=== PATIENT | male | born 1945 | race Caucasian/White ===

== ENCOUNTER → 2018-03-19 | Day surgery (SDC) | payer MEDICARE, OTHER ==
[~2018-03-19] MED LIST: AMLODIPINE BESY10 MG PO; LIDOCAINE HCL 2% LOCAL INJ 5 ML SDV VIAL INJ ONE; PROPOFOL IV EMULSION 10 MG/ML 20 ML VIAL ONE
--- OUTSIDE RECORDS SUMMARY | 2018-03-19 09:48 | XMS REPORT | Encounter Summary ---
Author Organization Unknown Address [address] [place] [address] Phone [phone] Reason for Visit Medical Complaint Instructions 1. Impacted cerumen of bilateral ears Discussion Note: None recorded. Patient educational handouts: No information available. Plan of Care Reminders Provider Appointments None recorded. Lab None recorded. Referral None recorded. Procedures None recorded. Surgeries None recorded. Imaging None recorded. Medications Name Start Date benazepril 20 mg tablet furosemide 20 mg tablet TK 1 T PO D Medications Administered None recorded. Vitals Height Weight BMI Blood Pressure 6 ft 151 lbs 20.5 kg/m2 115/62 mm[Hg] Lab Results None recorded. Allergies Code Code System Name Reaction Severity Status Onset NKDA Problems None recorded. Procedures None recorded. Vaccine List None recorded. Social History Smoking Status Current Every Day Smoker Past Encounters 10/28/2017 Impacted Cerumen of Bilateral Ears [facility]: [address] [place] [address], Ph. History of Present Illness Ear Complaint Reported By: Patient HPI: Location: bilateral. Quality: ears feel full/plugged. Duration: constant, symptoms lasting over 2 weeks. Modifying factors: does not hurt to lie on, or pull on ear, does not hurt to chew. Associated Symptoms: no discharge from the ears, no nose/sinus problems, no popping noise in the ears, no ringing in the ears, no earache, no dizziness, no vertigo, no headache, hearing loss Review of Systems:ROS as noted in the HPI Review of Systems Basic Reported By: Patient Physical Exam Adult Basic Reported By: Patient Constitutional: General Appearance: healthy-appearing, well-nourished, well-developed. Level of Distress: NAD. Ambulation: ambulating normally Psychiatric: Mental Status: active and alert Zik-Ashx-Csfle-Throat: Ears: no lesions on external ear, no outer ear tenderness, EAC occluded with cerumen, cerumen removed to visualize TM
--- OUTSIDE RECORDS SUMMARY | 2018-03-19 09:48 | XMS REPORT | Continuity of Care Document ---
Author Author [facility] Interface Address Unknown Phone Unavailable Problems Problem Status Onset Date Classification Date Reported Comments Source SECONDARY MALIGNANT NEOPLASM OF BONE/RIB Active 03/16/2018 [facility] C78.7/C20 Active 02/24/2018 [facility] RIBS Active 01/26/2018 [facility] DX: [id number] NEOPLASM OF RECTUM, Z5 Active 01/20/2018 [facility] Impacted cerumen of bilateral ears 10/28/2017 Diagnosis 10/28/2017 [facility] LABS Active 10/14/2017 [facility] C78.7 C20 Active 10/06/2017 [facility] Malignant neoplasm of rectum 07/05/2017 10/07/2017 [facility] C20 Active 06/25/2017 [facility] UNK Active 04/17/2017 [facility] DX: D21.4=BENIGN NEOPLASM OF CONNECTI Active 04/15/2017 [facility] R68.81 R63.4 F17.200 R97.8 R74.0 Active 04/09/2017 [facility] Hard of hearing Active Problem 10/19/2017 [facility] Hypertension Active Problem 10/19/2017 [facility] Rectal cancer Active Problem 10/19/2017 [facility] Secondary malignant neoplasm of liver and intrahepatic bile duct 10/07/2017 [facility] Emphysema, unspecified 10/07/2017 [facility] Colostomy status 10/07/2017 [facility] Constipation, unspecified 07/30/2017 [facility] Personal history of nicotine dependence 07/30/2017 [facility] Essential hypertension 07/30/2017 [facility] BENIGN NEOPLASM OF CONNECTIVE AND OTH SO Active [facility] Datatype(DG1.4)- Active [facility] OTHER ABNORMAL TUMOR MARKERS Active [facility] ABNORMAL WEIGHT LOSS Active [facility] MALIGNANT NEOPLASM OF COLON, UNSPECIFIED Active [facility] MALIGNANT NEOPLASM OF RECTUM Active [facility] SECONDARY MALIG NEOPLASM OF LIVER AND IN Active [facility] SECONDARY MALIGNANT NEOPLASM OF BONE Active [facility] ENCOUNTER FOR ANTINEOPLASTIC CHEMOTHERAP Active [facility] Medications Medication Details Route Status Patient Instructions Ordering Provider Order Date Source Omnipaque 300 100 mL, 0 ml/hr, Route: IV, Drug Form: SOLN, ONCE, Start date: 10/16/17 13:50:00 CDT, Stop date: 10/16/17 13:50:00 CDTNotes: (Same as:Omnipaque 300). WASTE: F/P - Black; E - Municipal Trash Bin Inactive 10/16/2017 [facility] Omnipaque 300 100 mL, Route: IV, Drug Form: SOLN, ONCE, Start date: 07/01/17 9:58:00 CDT, Stop date: 07/01/17 9:58:00 CDTNotes: (Same as:Omnipaque 300). WASTE: F/P - Black; E - Municipal Trash Bin Inactive 07/01/2017 [facility] acetaminophen 500 mg, 1 tab, Route: PO, Drug form: TAB, Q6H, Start date: 04/23/17 18:00:00 SPRAYER LEATHER, Duration: 30 day, Stop date: 05/23/17 12:00:00 CSTNotes: Max acetaminophen 4000 mg/day (4 gm/day). (Same as: Tylenol Extra Strength) Inactive 04/24/2017 [facility] diphenhydrAMINE 25 mg oral tablet 25 mg=1 tab, PO, Bedtime, PRN Insomnia, 0 Refill(s) Active 04/23/2017 [facility] acetaminophen 500 mg oral tablet 500 mg=1 tab, PO, Q6H, X 14 day, # 56 tab, 0 Refill(s) No Longer Active 04/23/2017 [facility] naproxen 500 mg oral tablet 500 mg=1 tab, PO, BID, X 14 day, # 28 tab, 0 Refill(s) No Longer Active 04/23/2017 [facility] baclofen 10 mg oral tablet 5 mg=0.5 tab, PO, BID, .., 0 Refill(s) Active 04/23/2017 [facility] Famotidine 20 MG Oral Tablet 20 mg=1 tab, PO, Q12H, 0 Refill(s) Active 04/23/2017 [facility] lisinopril 20 mg oral tablet 20 mg=1 tab, PO, Q24H, 0 Refill(s) Active 04/23/2017 [facility] benazepril 20 mg, Route: PO, Drug form: TAB, Daily, Dosing Weight 67.273, kg, Start date: 04/23/17 9:00:00 SPRAYER LEATHER, Duration: 30 day, Stop date: 05/22/17 9:00:00 [employer]ATHER No Longer Active 04/23/2017 [facility] Amlodipine 10 mg, 2 tab, Route: PO, Drug form: TAB, Daily, Dosing Weight 67.273, kg, Start date: 04/23/17 9:00:00 SPRAYER LEATHER, Duration: 30 day, Stop date: 05/22/17 9:00:00 CSTNotes: (Same as: Norvasc) Inactive 04/23/2017 [facility] Enoxaparin 40 mg, 0.4 mL, Route: SUB-Q, Drug form: INJ, [id number], Dosing Weight 67.273, kg, Start date: 04/23/17 2:30:00 SPRAYER LEATHER, Stop date: 05/22/17 2:30:00 CSTNotes: (Same as: Lovenox) Inactive 04/23/2017 [facility] Famotidine 20 mg, 1 tab, Route: PO, Drug form: TAB, Q12H, Dosing Weight 67.273, kg, Start date: 04/22/17 21:00:00 SPRAYER LEATHER, Duration: 30 day, Stop date: 05/22/17 9:00:00 CSTNotes: (Same as: Pepcid) No Longer Active 04/23/2017 [facility] Ofirmev 500 mg, 50 mL, Route: IV, Drug form: INJ, Q6H, Dosing Weight 67.273, kg, for > or=50 kg, Start date: 04/22/17 18:00:00 SPRAYER LEATHER, Duration: 24 hr, Stop date: 04/23/17 12:00:00 CSTNotes: Infuse over 15 minutes Do not exceed 4gm/day of acetaminophen MEDICATION WASTE Product Size: 1000 mg Product Wasted: ___ mg No Longer Active 04/23/2017 [facility] lisinopril 20 mg, 1 tab, Route: PO, Drug form: TAB, Q24H, Start date: 04/22/17 18:00:00 SPRAYER LEATHER, Duration: 30 day, Stop date: 05/21/17 18:00:00 CSTNotes: (Same as: Prinivil, Zestril) No Longer Active 04/23/2017 [facility] Dilaudid 1 mg, 0.5 tab, Route: PO, Drug form: TAB, Q3H, PRN Pain Score 7-10, Start date: 04/22/17 17:23:00 SPRAYER LEATHER, Duration: 30 day, Stop date: 05/22/17 17:22:00 CSTNotes: (Same as: Dilaudid) No Longer Active 04/22/2017 [facility] Naproxen 500 mg, 1 tab, Route: PO, Drug form: TAB, BID, Dosing Weight 67.273, kg, Start date: 04/22/17 17:00:00 SPRAYER LEATHER, Duration: 30 day, Stop date: 05/22/17 9:00:00 CSTNotes: (Same as: Naprosyn) Take with food. No Longer Active 04/22/2017 [facility] Baclofen 5 mg, 0.5 tab, Route: PO, Drug form: TAB, BID, Dosing Weight 67.273, kg, Start date: 04/22/17 17:00:00 SPRAYER LEATHER, Duration: 30 day, Stop date: 05/22/17 9:00:00 SPRAYER LEATHER, ..Notes: (Same As: Lioresal) No Longer Active 04/22/2017 [facility] neostigmine (ANES) Route: IV, Drug form: INJ, ONCE, Stop date: 04/22/17 14:43:00 SPRAYER LEATHER Inactive 04/22/2017 [facility] ondansetron (ANES) Route: IV, Drug form: INJ, ONCE, Stop date: 04/22/17 14:43:00 SPRAYER LEATHER Inactive 04/22/2017 [facility] glycopyrrolate (ANES) Route: IV, Drug form: INJ, ONCE, Stop date: 04/22/17 14:43:00 SPRAYER LEATHER Inactive 04/22/2017 [facility] dexamethasone (ANES) Route: IV, Drug form: INJ, ONCE, Stop date: 04/22/17 14:43:00 SPRAYER LEATHER Inactive 04/22/2017 [facility] Lidocaine 2 gm, 250 mL, Rate: Infuse as directed, Dosing Weight 67.273, kg, Route: IV, Total Volume: 250 mL, Start date: 04/22/17 14:33:00 SPRAYER LEATHER, Duration: 30 day, Stop date: 05/22/17 14:32:00 SPRAYER LEATHER, Replace Every: 24 hr Inactive 04/22/2017 [facility] Dilaudid 0.3 mg, Route: IVP, Q3H, Dosing Weight 67.273, kg, PRN Pain Score 7-10, Start date: 04/22/17 14:33:00 SPRAYER LEATHER, Duration: 30 day, Stop date: 05/22/17 14:32:00 SPRAYER LEATHER Inactive 04/22/2017 [facility] Ondansetron 4 mg, 2 mL, Route: IVP, Drug form: INJ, Q6H, Dosing Weight 67.273, kg, PRN Nausea & Vomiting, Start date: 04/22/17 14:33:00 SPRAYER LEATHER, Duration: 30 day, Stop date: 05/22/17 14:32:00 CSTNotes: (Same as: Nena) MEDICATION WASTE Product Size: 4 mg Product Wasted: ___ mg No Longer Active 04/22/2017 [facility] Diphenhydramine 25 mg, 1 tab, Route: PO, Drug form: TAB, Bedtime, Dosing Weight 67.273, kg, PRN Insomnia, Start date: 04/22/17 14:33:00 SPRAYER LEATHER, Duration: 30 day, Stop date: 05/22/17 14:32:00 SPRAYER LEATHER No Longer Active 04/22/2017 [facility] Calcium Chloride 0.0014 MEQ/ML / Potassium Chloride 0.004 MEQ/ML / Sodium Chloride 0.103 MEQ/ML / Sodium Lactate 0.028 MEQ/ML Injectable Solution 1,000 mL, Rate: 50 ml/hr, Infuse over: 20 hr, Route: IV, Dosing Weight 67.273 kg, Total Volume: 1,000, Start date: 04/22/17 14:33:00 SPRAYER LEATHER, Duration: 30 day, Stop date: 05/22/17 14:32:00 SPRAYER LEATHER, 1.85, m2 No Longer Active 04/22/2017 [facility] acetaminophen (ANES) 10 mg Route: IV, Drug form: INJ, Start date: 04/22/17 14:16:00 SPRAYER LEATHER, Stop date: 04/22/17 15:16:00 SPRAYER LEATHER Inactive 04/22/2017 [facility] fentaNYL (ANES) Route: IV, Drug form: INJ, ONCE, Stop date: 04/22/17 13:34:00 SPRAYER LEATHER Inactive 04/22/2017 [facility] lidocaine (ANES) Route: IV, Drug form: INJ, ONCE, Stop date: 04/22/17 13:34:00 SPRAYER LEATHER Inactive 04/22/2017 [facility] rocuronium (ANES) Route: IV, Drug form: INJ, ONCE, Stop date: 04/22/17 13:34:00 SPRAYER LEATHER Inactive 04/22/2017 [facility] propofol (ANES) Route: IV, Drug form: INJ, ONCE, Stop date: 04/22/17 13:34:00 SPRAYER LEATHER Inactive 04/22/2017 [facility] dexmedetomidine (ANES) 200 microgram Route: IV, Drug form: INJ, Start date: 04/22/17 13:30:00 SPRAYER LEATHER, Stop date: 04/22/17 14:30:00 SPRAYER LEATHER Inactive 04/22/2017 [facility] ketAMINE (ANES) 100 mg Route: IV, Drug form: INJ, Start date: 04/22/17 13:30:00 SPRAYER LEATHER, Stop date: 04/22/17 14:30:00 SPRAYER LEATHER Inactive 04/22/2017 [facility] metroNIDAZOLE (ANES) 5 mg Route: IV, Drug form: INJ, Start date: 04/22/17 13:00:00 SPRAYER LEATHER, Stop date: 04/22/17 14:00:00 SPRAYER LEATHER Inactive 04/22/2017 [facility] Sodium Chloride 0.9% IV (ANES) 1000 mL Route: IV, Total Volume: 1,000, Start date: 04/22/17 12:45:00 SPRAYER LEATHER, Stop date: 04/22/17 13:45:00 SPRAYER LEATHER Inactive 04/22/2017 [facility] ceFAZolin (ANES) 1000 mg Route: IV, Drug form: INJ, Start date: 04/22/17 12:45:00 SPRAYER LEATHER, Stop date: 04/22/17 13:45:00 SPRAYER LEATHER Inactive 04/22/2017 [facility] Lactated Ringers Injection IV (ANES) 1000 mL Route: IV, Total Volume: 1,000, Start date: 04/22/17 12:33:00 SPRAYER LEATHER, Stop date: 04/22/17 13:33:00 SPRAYER LEATHER Inactive 04/22/2017 [facility] Exparel 20 mL, Route: InFILtration(local), Drug Form: INJ, Dosing Weight 67.273, kg, ONCALL, For Hemorrhoidectomy, Start date: 04/22/17 11:00:00 SPRAYER LEATHER, Duration: 30 day, Stop date: 05/22/17 10:59:00 CSTNotes: (Same as: Exparel) NOT FOR IV use Postoperative analgesia: Infiltration (local): Dose is based on surgical site and volume required to cover the area (in general, the maximum total dose is 266 mg). No Longer Active 04/22/2017 [facility] Entereg 12 mg, Route: PO, PRE OP, Dosing Weight 67.273, kg, Start date: 04/22/17 11:00:00 SPRAYER LEATHER, Duration: 7 day, Stop date: 04/29/17 10:59:00 SPRAYER LEATHER Inactive 04/22/2017 [facility] Lactated Ringers IV 1000 mL 1,000 mL, Rate: 40 ml/hr, Infuse over: 25 hr, Route: IV, Dosing Weight 67.273 kg, Total Volume: 1,000, Start date: 04/22/17 10:40:00 SPRAYER LEATHER, Duration: 1 doses or times, Stop date: 04/23/17 11:39:00 SPRAYER LEATHER, 1.85, m2 Inactive 04/22/2017 [facility] Dexmedetomidine 200 microgram, 2 mL, Rate: Titrate, Start Dose: 0.2 microgram/kg/hr, Titration: 0.1 microgram/kg/hr every 30 min, Goal(s): MAINTAIN WITHIN NORMAL LIMITS, Max Dose: 1.5 microgram/kg/hr, Route: IV, Dosing Weight 67.273 kg, Total Volume: 50, Start date:...Notes: Not for use > 24 hours No Longer Active 04/22/2017 [facility] benazepril 20 mg oral tablet 20 mg=1 tab, PO, Daily, 0 Refill(s) Active 04/21/2017 [facility] amLODIPine 10 mg oral tablet 10 mg=1 tab, PO, Daily, 0 Refill(s) Active 04/21/2017 [facility] Visipaque 75 mL, Route: IV, Drug Form: SOLN, ONCE, Start date: 04/09/17 13:37:00 SPRAYER LEATHER, Stop date: 04/09/17 13:37:00 CSTNotes: (Same as: Visipaque). WASTE: F/P - Black; E - Municipal Trash Bin Inactive 04/09/2017 [facility] Benazepril hydrochloride 20 MG Oral Tablet benazepril 20 mg tablet Active [facility] Furosemide 20 MG Oral Tablet furosemide 20 mg tablet TK 1 T PO D Active [facility] Allergies, Adverse Reactions, Alerts Substance Category Reaction Severity Reaction type Status Date Reported Comments Source Immunizations Immunization Date Given Site Status Last Updated Comments Source Results Order Name Results Value Reference Range Date Interpretation Comments Source Chest 2 views DX Chest 2 views DX PA and lateral chest: Right subclavian Port-A-Cath is seen with the tip in the upper SVC. The aorta is tortuous with calcification in the arch. The cardiomediastinal silhouette, pulmonary vasculature and minerva are otherwise within normal limits. There is a nipple shadow overlying the lower left lung. The lungs and pleural spaces are clear. There are no significant osseous abnormalities. There is no significant change compared to 05/01/2017, other than Port-A-Cath placement. IMPRESSION: No acute radiographic abnormalities in the chest. DLAWRENCE-PC 02/24/2018 - - Read by: Hood Martin MD Dictated Date/time: 02/24/18 15:49 Electronically Signed by: Hood Martin MD 02/24/18 15:51 FINAL REPORT [facility] PET CT Colorectal CA initial staging PET CT Colorectal CA initial staging Addendum: Comparison is made visualized 2017 CAT scan. Within the limitations of non-PET comparison technique, the overall bulk of liver metastasis appears slightly improved. The left lobe mass measures 7.8 cm versus 8.1 cm. The right lobe mass measures 7.2 cm versus 8.5 cm. The bony metastases are difficult to compare as they are better seen on PET technique. These findings are communicated to Brandi Zuñiga DO at 01/26/2018 8:49 AM CDT. Patient Name: JOJO REYNOSO : 1945; Age: 73 years Male MR: [id number] Study: PET CT Colorectal CA initial staging 01/24/2018 9:00 AM CDT Clinical Indication: C20 Malignant neoplasm of rectum; C78.7 Secondary malignant neoplasm of liver and intrahepatic bile duct--Initial Dose: FKJ=244.23 ; CTDIvol=3.13 COMPARISON: None PET CT TECHNIQUE: Positron emission tomography imaging is performed 45 minutes after intravenous administration of 15.4 mCi of F-18 labeled FDG, from the skull base to the mid thigh region. PET images were reviewed in the axial, coronal and sagittal orthogonal projections. Non-contrast enhanced CT imaging was for performed for attenuation correction, localization and limited diagnostic purposes. INJECTION SITE: Right antecubital Serum glucose: 85 mg/dL. FINDINGS: NECK: There are no foci of abnormal metabolic activity. CHEST: There are no foci of abnormal metabolic activity. Moderate centrilobular emphysematous change. The aorta measures 4.2 cm in diameter. There are coronary artery calcifications. ABDOMEN: Multiple liver metastases with central necrosis and peripheral uptake. In the right lobe, image 140, the mass measures 8.5 cm, SUV 7.0. In the left lobe, image 136, the mass measures 8.7 cm, SUV 7.8. Multiple other foci of abnormal uptake are identified throughout the liver. For example, on image 160, in the inferior right lobe, the mass measures 2.5 cm, SUV 8.0. PELVIS: Distal colonic uptake spans images 207-218, SUV 8.8. Left lower quadrant ostomy. BONES: C7 metastatic disease, image 50, 1.8 cm, SUV 6.4. Right T1 transverse process metastasis, image 57 measures 1 cm, SUV 4.1. Right fifth posterior rib metastasis image 70 measures 2.5 cm, SUV 3.3. Left eighth rib metastasis, image 141 measures 1 cm, SUV 3.9. T11 metastasis, image 123 measures 2 cm, SUV 6.4. L5 metastasis, image 185 measures 2.7 cm, SUV 5.2. Left iliac bone metastasis, image 207 measures 1.8 cm, SUV 6.2. Sacral metastasis, image 206 measures 1.8 cm, SUV 5.2. Physiologic F-18 labeled FDG distribution is noted in the brain, heart, spleen and genitourinary tracts. IMPRESSION: 1. Multiple bony metastasis. 2. Multiple liver metastasis. 3. Distal colonic nonspecific uptake, correlation with the most recent colonoscopy is recommended. 4. Slightly dilated aorta. FDG PET is known to show little to no uptake in malignant disease with low metabolic activity including bronchoalveolar carcinoma (renamed adenocarcinoma in situ, minimally invasive adenocarcinoma) or carcinoid. There are studies showing malignant pleural mesothelioma with SUV values ranging from less than 1 to greater than 12 depending on metabolic activity of the tumor. SL: [id number] 01/24/2018 - - Read by: Reid Perez MD Dictated Date/time: 01/26/18 08:41 Electronically Signed by: Reid Perez MD 01/26/18 08:49 FINAL REPORT - - Read by: Reid Perez MD Dictated Date/time: 01/26/18 07:41 Electronically Signed by: Reid Perez MD 01/26/18 08:03 FINAL REPORT [facility] CHEM PANEL eGFR 84 mL/min/1.73m2 10/16/2017 Result Comment: The eGFR is calculated using the CKD-EPI formula. In most young, healthy individuals the eGFR will be >90 mL/min/1.73m2. The eGFR declines with age. An eGFR of 60-89 may be normal in some populations, particularly the elderly, for whom the CKD-EPI formula has not been extensively validated. Use of the eGFR is not recommended in the following populations: Individuals with unstable creatinine concentrations, including patients and those with serious co-morbid conditions. Patients with extremes in muscle mass or diet. The data above are obtained from the National Kidney Disease Education Program (NKDEP) which additionally recommends that when the eGFR is used in patients with extremes of body mass index for purposes of drug dosing, the eGFR should be multiplied by the estimated BMI. [facility] CHEM PANEL POC Creatinine 0.9 mg/dL 0.5 - 1.4 10/16/2017 [facility] Chest/Abdomen/Pelvis w IV contrast CT Chest/Abdomen/Pelvis w IV contrast CT EXAM: CT chest, abdomen, pelvis HISTORY: Malignant neoplasm of rectum, secondary malignant neoplasm of the liver COMPARISON: CT 07/01/2017 TECHNIQUE: Axial images with sagittal and coronal reformats. 100 mL Omnipaque IV contrast and 50 mL Omnipaque oral contrast. DLP 592 FINDINGS: CHEST LUNGS: 3 mm nodular density left upper lobe, series 4, image 60 is stable. Near- complete resolution of previous irregular opacity right lung apex, images 52-53. No new nodule is seen. Emphysema. MEDIASTINUM: Few small lymph nodes are stable and nonspecific. PLEURA: No effusion. ABDOMEN AND PELVIS LIVER: Decreased size and resolution of some of the multiple liver masses. For example, the dominant mass in the lateral left hepatic lobe measures approximately 9.8 x 8.1 cm, previously 12.5 x 9.5 cm. No new mass is seen. OTHER SOLID ORGANS: Calcified granulomas in the spleen. Small cysts in both kidneys. The gallbladder and adrenals are unremarkable. Mild mass effect on the proximal body of the pancreas from the adjacent liver mass. Mild enlargement of the prostate. The bladder is unremarkable. GASTROINTESTINAL TRACT: Mass at the rectosigmoid measures approximately 3.2 x 3 cm, previously 3.8 x 3 cm. Stable left-sided colostomy. No bowel obstruction. Diverticulosis sigmoid colon. PERITONEUM AND RETROPERITONEUM: Decreased trace ascites around the liver. No bulky lymph nodes. Arteriosclerosis. BONES: Generalized osteopenia. IMPRESSION: 1. Treatment response with decreased size or resolution of the multiple masses in the liver. 2. No significant change or slightly decreased size of the primary neoplasm rectosigmoid colon. 3. Decreased trace free fluid around the liver. 4. No new disease is seen 5. Pulmonary emphysema. SL 14 10/16/2017 - - Read by: Dallin Garrison MD Dictated Date/time: 10/16/17 11:26 Electronically Signed by: Dallin Garrison MD 10/16/17 12:05 FINAL REPORT [facility] CHEM [facility] eGFR 84 mL/min/1.73m2 07/01/2017 Result Comment: The eGFR is calculated using the CKD-EPI formula. In most young, healthy individuals the eGFR will be >90 mL/min/1.73m2. The eGFR declines with age. An eGFR of 60-89 may be normal in some populations, particularly the elderly, for whom the CKD-EPI formula has not been extensively validated. Use of the eGFR is not recommended in the following populations: Individuals with unstable creatinine concentrations, including patients and those with serious co-morbid conditions. Patients with extremes in muscle mass or diet. The data above are obtained from the National Kidney Disease Education Program (NKDEP) which additionally recommends that when the eGFR is used in patients with extremes of body mass index for purposes of drug dosing, the eGFR should be multiplied by the estimated BMI. [facility] CHEM PANEL POC Creatinine 0.9 mg/dL 0.5 - 1.4 07/01/2017 [facility] Chest/Abdomen/Pelvis w IV contrast CT Chest/Abdomen/Pelvis w IV contrast CT Patient Name: JOJO REYNOSO : 1945; Age: 72 years y/o Male MR: [id number] Study: Chest/Abdomen/Pelvis w IV contrast CT 07/01/2017 9:14 AM CDT Clinical Indication: - C20 Malignant neoplasm of rectum, Z51.11 Encounter for antineoplastic chemotherapy; Comparison: Pelvic MRI April 16, 2017, abdomen and pelvis CT April 02, 2017. TECHNIQUE: Volumetric acquisition of the chest, abdomen and pelvis following intravenous administration of contrast. Delayed imaging was then performed through the abdomen and pelvis. Coronal and sagittal reformats created. 100 mL Omnipaque 300 IV. Total exam DLP 596. FINDINGS: Chest: Bullous and emphysematous changes within the lungs. Few small reticular subpleural fibrotic changes in the lung apices and upper lobe regions. There is a 3 mm indeterminate nodule left upper lobe, image 4 series 6. No other suspicious pulmonary nodule, mass or infiltrate. No pleural effusion. Heart size normal. No pericardial effusion. Mild atherosclerotic calcification of the thoracic aorta without aneurysm or dissection. Pulmonary emboli appreciated. No thoracic lymphadenopathy. There is a MediPort in the right chest wall with the catheter tip in the SVC. No thoracic osseous abnormalities. Abdomen: Again noted are numerous large metastatic lesions scattered throughout the liver. Largest lesion in the left lobe measures at least 10 cm. Largest lesion in the right lobe measures at least 9 cm. Many other smaller lesions are scattered throughout the parenchyma. There is no significant pathologic biliary ductal dilatation. . Gallbladder is grossly normal. Pancreas,, kidneys are unremarkable. Right adrenal gland appears grossly normal. Left adrenal gland is diffusely mildly enlarged, concerning for additional metastatic spread. There is trace free fluid surrounding the liver. Minimal free fluid is seen within the pelvic peritoneum. No other significant ascites Bowel: No small bowel abnormality appreciated. There is been interval left lower quadrant colostomy and mucous fistula formation. No colonic distention or obstruction. There is moderate diverticulosis of the proximal sigmoid colon, without evidence for diverticulitis or colitis. There is a 4 cm rectal mass suspected at the upper rectum near the rectosigmoid junction. There is no definite perirectal or pelvic sidewall lymph nodes or masses otherwise. Pelvis: The bladder is unremarkable. No additional abnormal fluid collection identified in the abdomen or pelvis. No bony lesion identified about the abdomen or pelvis. Of note there anasarca changes noted throughout the body wall. IMPRESSION: Bullous and emphysematous changes within the lungs. Tiny 3 mm indeterminate nodule left upper lobe. No other suspicious thoracic disease appreciated. Extensive metastatic disease throughout the liver with numerous, very large hepatic masses again scattered throughout the right and left hepatic lobes. Interval left lower quadrant colostomy and mucous fistula creation. 4 cm upper rectal mass is again identified. No definite abdominal or pelvic lymphadenopathy otherwise. Small perihepatic and pelvic free fluid. Anasarca changes. SL: [id number] 07/01/2017 - - Read by: Celestino Mccall MD Dictated Date/time: 07/01/17 11:29 Electronically Signed by: Celestino Mccall MD 07/01/17 11:46 FINAL REPORT [facility] ELECTROLYTES AGAP 16.3 meq/L 10.0 - 20.0 04/23/2017 [facility] ELECTROLYTES Glucose Lvl 119 mg/dL 70 - 99 04/23/2017 [facility] ELECTROLYTES BUN 28 mg/dL 7 - 22 04/23/2017 [facility] ELECTROLYTES Creatinine Lvl 1.23 mg/dL 0.50 - 1.40 04/23/2017 [facility] ELECTROLYTES Sodium Lvl 132 meq/L 135 - 145 04/23/2017 [facility] ELECTROLYTES eGFR 57 mL/min/1.73m2 04/23/2017 Result Comment: The eGFR is calculated using the CKD-EPI formula. In most young, healthy individuals the eGFR will be >90 mL/min/1.73m2. The eGFR declines with age. An eGFR of 60-89 may be normal in some populations, particularly the elderly, for whom the CKD-EPI formula has not been extensively validated. Use of the eGFR is not recommended in the following populations: Individuals with unstable creatinine concentrations, including patients and those with serious co-morbid conditions. Patients with extremes in muscle mass or diet. The data above are obtained from the National Kidney Disease Education Program (NKDEP) which additionally recommends that when the eGFR is used in patients with extremes of body mass index for purposes of drug dosing, the eGFR should be multiplied by the estimated BMI. [facility] ELECTROLYTES Potassium Lvl 4.3 meq/L 3.5 - 5.1 04/23/2017 [facility] ELECTROLYTES Chloride Lvl 99 meq/L 95 - 109 04/23/2017 [facility] ELECTROLYTES Calcium Lvl 8.5 mg/dL 8.5 - 10.5 04/23/2017 [facility] ELECTROLYTES CO2 21 meq/L 24 - 32 04/23/2017 [facility] HEMATOLOGY Hgb 13.6 g/dL 14.0 - 18.0 04/23/2017 [facility] HEMATOLOGY Hct 40.6 % 42.0 - 54.0 04/23/2017 [facility] BLOOD BANK RESULTS ABO/Rh B POS 04/21/2017 [facility] BLOOD BANK RESULTS Antibody Scrn Negative (04/21/17 8:54 AM) 04/21/2017 [facility] CHEM PANEL eGFR 66 mL/min/1.73m2 04/21/2017 Result Comment: The eGFR is calculated using the CKD-EPI formula. In most young, healthy individuals the eGFR will be >90 mL/min/1.73m2. The eGFR declines with age. An eGFR of 60-89 may be normal in some populations, particularly the elderly, for whom the CKD-EPI formula has not been extensively validated. Use of the eGFR is not recommended in the following populations: Individuals with unstable creatinine concentrations, including patients and those with serious co-morbid conditions. Patients with extremes in muscle mass or diet. The data above are obtained from the National Kidney Disease Education Program (NKDEP) which additionally recommends that when the eGFR is used in patients with extremes of body mass index for purposes of drug dosing, the eGFR should be multiplied by the estimated BMI. [facility] CHEM PANEL Calcium Lvl 8.9 mg/dL 8.5 - 10.5 04/21/2017 [facility] CHEM PANEL CO2 30 meq/L 24 - 32 04/21/2017 [facility] CHEM PANEL Sodium Lvl 136 meq/L 135 - 145 04/21/2017 [facility] CHEM PANEL Creatinine Lvl 1.10 mg/dL 0.50 - 1.40 04/21/2017 [facility] CHEM PANEL Chloride Lvl 99 meq/L 95 - 109 04/21/2017 [facility] CHEM PANEL Potassium Lvl 4.4 meq/L 3.5 - 5.1 04/21/2017 [facility] CHEM PANEL Glucose Lvl 91 mg/dL 70 - 99 04/21/2017 [facility] CHEM PANEL BUN 16 mg/dL 7 - 22 04/21/2017 [facility] CHEM PANEL AGAP 11.4 meq/L 10.0 - 20.0 04/21/2017 [facility] HEMATOLOGY INR 1.08 0.85 - 1.17 04/21/2017 [facility] PT 14.0 s 12.0 - 14.7 04/21/2017 [facility] PTT 33.1 s 22.9 - 35.8 04/21/2017 [facility] RDW 13.6 % 11.5 - 14.5 04/21/2017 [facility] MCH 30.7 pg 27.0 - 31.0 04/21/2017 [facility] MCHC 33.6 g/dL 32.0 - 36.0 04/21/2017 [facility] MCV 91.3 fL 80.0 - 94.0 04/21/2017 [facility] Hct 42.0 % 42.0 - 54.0 04/21/2017 [facility] Platelet 266 K/CMM 133 - 450 04/21/2017 [facility] MPV 8.7 fL 7.4 - 10.4 04/21/2017 [facility] Hgb 14.1 g/dL 14.0 - 18.0 04/21/2017 [facility] WBC 10.1 K/CMM 3.7 - 10.4 04/21/2017 [facility] RBC 4.60 M/CMM 4.70 - 6.10 04/21/2017 [facility] Basophils # 0.1 K/CMM 0.0 - 0.2 04/21/2017 [facility] Eosinophils # 0.1 K/CMM 0.0 - 0.5 04/21/2017 [facility] Monocytes # 1.0 K/CMM 0.0 - 0.8 04/21/2017 [facility] Lymphocytes 12.9 % 20.0 - 40.0 04/21/2017 [facility] Monocytes 9.5 % 2.0 - 12.0 04/21/2017 [facility] Segs-Bands # 7.7 K/CMM 1.5 - 8.1 04/21/2017 [facility] Basophils 0.8 % 0.0 - 1.0 04/21/2017 [facility] Eosinophils 0.7 % 0.0 - 4.0 04/21/2017 [facility] Segs 76.1 % 45.0 - 75.0 04/21/2017 [facility] Lymphocytes # 1.3 K/CMM 1.0 - 5.5 04/21/2017 [facility] Chest 2 views DX Chest 2 views DX CHEST TWO VIEW INDICATION: Preop chest x-ray. COMPARISON: No relevant priors available. FINDINGS: The lungs are clear. The pleura, cardiomediastinal silhouette and bony thorax are normal. IMPRESSION: Negative. END IMPRESSION SL: [id number] 04/21/2017 - - Read by: Edd Epperson MD Dictated Date/time: 04/21/17 08:45 Electronically Signed by: Edd Epperson MD 04/21/17 08:46 FINAL REPORT [facility] Barium enema DX Barium enema DX Barium enema DX CLINICAL HISTORY: Gastro Graffin Enema, fl time 1.13 mGy, dose 42.79 mGy, Dr. 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 COMPARISON: MRI pelvis 04/16/2017 TECHNIQUE: Gastrografin was administered into the rectum in a retrograde fashion. Fluoroscopic and overhead images of the colon were subsequently performed. FINDINGS: VETERINARIAN POULTRY: Police Investigator study reveals nonobstructive bowel gas pattern. Moderate amount of retained stool is noted in the colon. BARIUM ENEMA: Evaluation is limited secondary to usage of water-soluble contrast and patient's inability to tolerate a regular enema tip with a balloon. A pediatric tip was inserted without the balloon in place. Gastrografin was administered in a retrograde fashion. The contrast column extends to near the top of the rectum but does not pass proximally. Upon placement of additional contrast, there is leakage of contrast from patient's rectum. IMPRESSION: Obstruction is noted at the high rectum related to patient's known neoplasm. The study is limited since the patient is unable to tolerate a regular enema tip with a balloon that can hold the contrast. [id number] 04/17/2017 - - Read by: Qamar White MD Dictated Date/time: 04/17/17 12:05 Electronically Signed by: Qamar White MD 04/17/17 12:09 FINAL REPORT [facility] Pelvis wo contrast MRI Pelvis wo contrast MRI EXAM: MRI pelvis HISTORY: Rectal cancer COMPARISON: CT abdomen 04/09/2017 TECHNIQUE: Multiplanar, multisequence acquisition of the pelvis without contrast per rectal cancer protocol. The exam is incomplete as patient could not tolerate laying on his back for the entire scan FINDINGS: Overall image quality: Adequate 1. PRIMARY TUMOR: LOCATION: Distance to the anal verge: Approximately 11 cm Distance to the top of sphincter complex/anorectal junction: Approximately 9 cm Relationship to anterior peritoneal reflection: Appears clear Craniocaudal length: Approximately 4 cm MORPHOLOGY and TUMOR CHARACTERISTICS: Circumferential solid tumor with some foci of mild necrosis. 2. T STAGE: Extramural depth of invasion: 4 mm MR-T category: T3b Structures with possible invasion: : Fat plane between the bladder tumor may be effaced without appreciable bladder invasion. Pelvic sidewall: None Pelvic floor: None Sacrum: None Vessels: Not appreciated Nerves: Not appreciated FOR LOW RECTAL TUMORS: Involvement of anal sphincters: None 3. EXTRAMURAL VENOUS INVASION (EMVI): Not appreciated 4. CIRCUMFERENTIAL RESECTION MARGIN: [For T3 Tumor Only] Shortest distance of tumor to MRF or anticipated CRM: 8 mm Separate tumor deposit, suspicious lymph node or EMVI threatening (< 2 mm) or invading (<1 mm) the MRF): Not seen Extramural depth of invasion at this level: 4 mm Any tumor spiculations closer to the MRF?: Not seen Any other component of the tumor closer to the MRF?: Not seen Shortest distance of any suspicious mesorectal lymph node/tumor deposit to MRF: 2.5 cm Location of lymph node/deposit closest to MRF: Two lymph nodes left mesorectal fat at approximately 2-3 o'clock. 5. TME [Superior Rectal \T\ Mesorectal Only] LYMPH NODES AND TUMOR DEPOSITS: 1.4 cm lymph node left mesorectal fat SHARONDA NODE PRESENT/ABSENT: absent If absent, most superior suspicious lymph node/deposit is located: Left mesorectal fat at approximately 2-3 o'clock 6. EXTRA-TME LYMPH NODES [AJCC 7thed: Locoregional: internal iliac, obturator. Non- locoregional (M1): external iliac, common iliac, retroperitoneal, inguinal] Any suspicious extra-TME/ pelvic sidewall nodes? No 7. OTHER: Multiple liver masses. Diverticulosis sigmoid colon. Mildly enlarged prostate. IMPRESSION: Incomplete exam as patient could not tolerate laying on his back for entire scan. 1. Approximately 4 cm mass in the high rectum and distal sigmoid colon, MR Stage T3b, N1. 2. Multiple liver masses compatible with metastasis. SL 17 04/16/2017 - - Read by: Dallin Garrison MD Dictated Date/time: 04/17/17 08:12 Electronically Signed by: Dallin Garrison MD 04/17/17 09:09 FINAL REPORT [facility] CHEM PANEL eGFR 45 mL/min/1.73m2 04/09/2017 Result Comment: The eGFR is calculated using the CKD-EPI formula. In most young, healthy individuals the eGFR will be >90 mL/min/1.73m2. The eGFR declines with age. An eGFR of 60-89 may be normal in some populations, particularly the elderly, for whom the CKD-EPI formula has not been extensively validated. Use of the eGFR is not recommended in the following populations: Individuals with unstable creatinine concentrations, including patients and those with serious co-morbid conditions. Patients with extremes in muscle mass or diet. The data above are obtained from the National Kidney Disease Education Program (NKDEP) which additionally recommends that when the eGFR is used in patients with extremes of body mass index for purposes of drug dosing, the eGFR should be multiplied by the estimated BMI. [facility] CHEM PANEL POC Creatinine 1.5 mg/dL 0.5 - 1.4 04/09/2017 [facility] Pancreatic Protocol w/wo contrast CT Abd Pancreatic Protocol w/wo contrast CT In comparison to 04/09/2017, the liver metastases appear overall somewhat increased in volume. For example a lesion within the lateral segment of the left lobe of the liver previously measured approximately 4.3 x 8 cm, now 6 x 11 cm. The largest lesion within the anterior aspect of the right lobe of the liver was previously 6 x 7 cm, now 8 x 8 cm. An additional lesion within the in the right lobe currently measures 4.5 x 4.7 cm, previously 3.4 x 4.0 cm. None of the other large lesions appear any smaller since the previous exam. [facility] Pancreatic Protocol w/wo contrast CT 04/09/2017 1:03 PM [facility] Ordering Physician:Gildardo Perdomo MD CLINICAL HISTORY: 25cc omni oral; 75cc visi iv; dlp: 819; VM - Early satiety; weight loss; smoker; elevated CA-19; abnormal liver function tests; pt states he is having a colonoscopy and the doctor wants pictures before that; pt states he doesnt know of any issues with his pancreas; COMPARISON: None TECHNIQUE: 5 mm thick axial images of the abdomen and pelvis were obtained without IV contrast. 2 mm thick axial images of the abdomen through the level of the pancreas were obtained with IV contrast in the arterial phase. 4 mm thick axial images of the abdomen and pelvis were obtained in the portal venous phase. 6 mm thick axial images of the abdomen and pelvis were obtained in the delayed phase. Oral contrast was administered. Coronal and sagittal reformations were created. FINDINGS: Visualized lung bases demonstrate hyperinflation with centra acinar emphysematous changes, and a left lower lobe basilar 6 mm pulmonary nodule. Multiple masses or nodules are scattered throughout the liver, with the largest mass in the left hepatic lobe measuring about 10 cm in greatest dimension and in the right lobe 9 cm in greatest dimension. Extrinsic impression is noted upon the mid to distal portal veins, but with no clear portal vein thrombus present. Mainly right hepatic lobe mild intrahepatic biliary ductal dilatation due to segmental obstruction from the dominant right hepatic lobe mass is present. No extrahepatic biliary ductal dilatation is present. Pancreas contains a few punctate calcified granulomas, but no mass or cystic lesion. No peripancreatic fat stranding is present. No major pancreatic ductal dilatation is present. Partially visualized rectosigmoid region of the colon suggests abnormal circumferential mural thickening. Moderate sigmoid colonic diverticulosis is present. Generous amount of stool is present throughout the colon. Appendix is not identified. Remaining gastrointestinal tract is normal. Nodular thickening of the left adrenal gland is present. Spleen, right adrenal gland, and kidneys are normal. Uterus are normal. Bladder is not imaged. Gallbladder is contracted. No mesenteric or retroperitoneal lymphadenopathy is present. No free air or free fluid is present. Bones are normal. IMPRESSION: 1. Multiple large hepatic metastases, probable colorectal metastases given the presence of a partially imaged abnormally thickened rectosigmoid junction of the colon most consistent with primary colorectal adenocarcinoma. 2. Stigmata of old/chronic pancreatitis. Otherwise, no pancreatic tumor or other acute pathology. 3. Moderate sigmoid colonic diverticulosis. 4. Left lower lobe basilar 6 mm pulmonary nodule, possible metastasis. 5. Pulmonary emphysematous changes. SL: [id number] 04/09/2017 - - Read by: Celestino Mccall MD Dictated Date/time: 07/07/17 11:15 Electronically Signed by: Celestino Mccall MD 07/07/17 11:23 FINAL REPORT - - Read by: Stanton Alvarado MD Dictated Date/time: 04/09/17 14:29 Electronically Signed by: Stanton Alvarado MD 04/09/17 15:17 FINAL REPORT [facility] Vital Signs Vital Sign Value Date Comments Source Diastolic (mm Hg) 62 10/28/2017 [facility] Height 72 10/28/2017 [facility] Systolic (mm Hg) 115 10/28/2017 [facility] Weight 151 10/28/2017 [facility] Heart Rate 50 04/23/2017 [facility] Temperature Oral (F) 97.9 F 04/23/2017 [facility] Systolic (mm Hg) 125 04/23/2017 [facility] Diastolic (mm Hg) 69 04/23/2017 [facility] Respitory Rate 16 04/23/2017 [facility] Respitory Rate 16 04/23/2017 [facility] Systolic (mm Hg) 134 04/23/2017 [facility] Diastolic (mm Hg) 78 04/23/2017 [facility] Heart Rate 53 04/23/2017 [facility] Temperature Oral (F) 97.4 F 04/23/2017 [facility] Respitory Rate 14 04/23/2017 [facility] Systolic (mm Hg) 123 04/23/2017 [facility] Diastolic (mm Hg) 76 04/23/2017 [facility] Temperature Oral (F) 97.3 F 04/23/2017 [facility] Heart Rate 56 04/23/2017 [facility] Weight 67.273 04/21/2017 [facility] Height 182.88 cm 04/21/2017 [facility] BMI Calculated 20.11 04/21/2017 [facility] Encounters Location Location Details Encounter Type Encounter Number Reason For Visit Attending Provider ADM Date DC Date Status Source [facility] Outpatient [id number] Gildardo Perdomo 04/09/2017 04/10/2017 [facility] Outpatient [id number] Jonathan Askenasy 04/16/2017 04/17/2017 [facility] Outpatient [id number] Jonathan Askenasy 04/17/2017 04/18/2017 [facility] Inpatient [id number] Jonathan Askenasy 04/22/2017 04/23/2017 [facility] Outpatient [id number] Brandi Anderson-Carine 07/01/2017 07/02/2017 [facility] Outpatient [id number] Brandi Anderson-Carine 10/16/2017 10/17/2017 [facility] [place] [facility] FAITH TorresC: [address] [place] [address], Ph. [id number] Neteu Corea 10/28/2017 [facility] Procedures Procedure Code Date Perfomer Comments Source Colonoscopy [id number] 04/15/2017 [facility] Cataract extraction and insertion of intraocular lens [id number] [facility] Hernia repair [id number] [facility]
--- OUTSIDE RECORDS SUMMARY | 2018-03-19 09:49 | XMS REPORT | Summary of Care ---
Author Author [facility] Organization [facility] Address Unknown Phone Unavailable Encounter JEFFERSON Aragon(MAITE) [id number] Date(s): 10/16/17 - 10/16/17 [facility] [address] [place] [address]- Discharge Disposition: Home or Self Care Attending Physician: Brandi Zuñiga DO Referring Physician: Brandi Zuñiga DO Vital Signs No data available for this section Problem List Condition Effective Dates Status Health Status Informant Hard of Active hearing(Confirmed) Hypertension(Confirm Active ed) Rectal Active cancer(Confirmed) Allergies, Adverse Reactions, Alerts Substance Reaction Severity Status NKDA Active Medications Omnipaque 300 100 mL, 0 ml/hr, Route: IV, Drug Form: SOLN, ONCE, Start date: 10/16/17 13:50:00 CDT, Stop date: 10/16/17 13:50:00 CDT Notes: (Same as:Omnipaque 300).WASTE: F/P - Black; E - Municipal Trash Bin Start Date: 10/16/17 Stop Date: 10/16/17 Status: Completed Results CHEM PANEL Most recent to 1 oldest [Reference Range]: eGFR 84 mL/min/1.73m2 1 *NA* (10/16/17 8:56 AM) POC Creatinine 0.9 mg/dL [0.5-1.4 mg/dL] (10/16/17 8:56 AM) 1Result Comment: The eGFR is calculated using the [...] from the National Kidney Disease Education Program ( NKDEP) which additionally recommends that when the eGFR is used in patients with extremes of body mass index for purposes of drug dosing, the eGFR should be mul tiplied by the estimated BMI. Immunizations No data available for this section Procedures Procedure Date Related Diagnosis Body Site Status Colonoscopy 04/15/17 Completed Cataract extraction and insertion of Completed intraocular lens Hernia repair Completed Social History Social History Type Response Substance Abuse Use: None. Alcohol Current, Frequency: 1-2 times per month. Smoking Status Current every day smoker; Type: Cigarettes; Exposure to Tobacco Smoke self; Cigarette Smoking Last 365 Days Yes; Reg Smoking Cessation Counseling Yes; Tobacco use per day: 20; entered on: 04/22/17 Assessment and Plan No data available for this section
--- OUTSIDE RECORDS SUMMARY | 2018-03-19 09:49 | XMS REPORT | Summary of Care ---
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) - Constipation, unspecified (Final) - Personal history of nicotine dependence (Final) - Essential (primary) hypertension (Final) - Discharge Disposition: Home Care with Home Health Attending Physician: Jonathan Gale MD Admitting Physician: Jonathan Gale MD Referring Physician: Jonathan Gale MD Vital Signs 1 2 3 Most recent to oldest [Reference Range]: 182.88 cm (04/21/17 8:03 AM) Height 97.9 DegF (04/23/17 12:44 PM) 97.4 DegF (04/23/17 7:57 AM) 97.3 DegF (04/23/17 4:30 AM) Temperature Oral [96.4-99.1 DegF] 125/69 mmHg (04/23/17 12:44 PM) 134/78 mmHg (04/23/17 7:57 AM) 123/76 mmHg (04/23/17 4:30 AM) Blood Pressure [90-140/60-90 mmHg] 16 BRMIN (04/23/17 12:44 PM) 16 BRMIN (04/23/17 7:57 AM) 14 BRMIN (04/23/17 6:55 AM) Respiratory Rate [14-20 BRMIN] 50 bpm *LOW* (04/23/17 12:44 PM) 53 bpm *LOW* (04/23/17 7:57 AM) 56 bpm *LOW* (04/23/17 4:30 AM) Peripheral Pulse Rate [60-100 bpm] 67.273 kg (04/21/17 8:03 AM) Weight 20.11 m2 (04/21/17 8:03 AM) Body Mass Index Problem List Condition Effective Dates Status Health Status Informant Hard of Active hearing(Confirmed) Hypertension(Confirm Active ed) Rectal Active cancer(Confirmed) Allergies, Adverse Reactions, Alerts Substance Reaction Severity Status NKDA Active Medications acetaminophen 500 mg, 1 tab, Route: PO, Drug form: TAB, Q6H, Start date: 04/23/17 18:00:00 BAND SINGER , Duration: 30 day, Stop date: 05/23/17 12:00:00 BAND SINGER Notes: Max acetaminophen 4000 mg/day (4 gm/day). (Same as: Tylenol Extra Streng th) Start Date: 04/23/17 Stop Date: 04/23/17 Status: Canceled acetaminophen (ANES) 10 mg Route: IV, Drug form: INJ, Start date: 04/22/17 14:16:00 BAND SINGER, Stop date: 8 15:16:00 BAND SINGER Start Date: 04/22/17 Stop Date: 04/22/17 Status: Completed acetaminophen 500 mg oral tablet 500 mg=1 tab, PO, Q6H, X 14 day, # 56 tab, 0 Refill(s) Start Date: 04/23/17 Stop Date: 05/07/17 Status: Completed amLODIPine 10 mg, 2 tab, Route: PO, Drug form: TAB, Daily, Dosing Weight 67.273, kg, Start date: 04/23/17 9:00:00 BAND SINGER, Duration: 30 day, Stop date: 05/22/17 9:00:00 BAND SINGER Notes: (Same as: Norvasc) Start Date: 04/23/17 Stop Date: 04/23/17 Status: Discontinued amLODIPine 10 mg oral tablet 10 mg=1 tab, PO, Daily, 0 Refill(s) Start Date: 04/21/17 Status: Ordered baclofen 5 mg, 0.5 tab, Route: PO, Drug form: TAB, BID, Dosing Weight 67.273, kg, Start d ate: 04/22/17 17:00:00 BAND SINGER, Duration: 30 day, Stop date: 05/22/17 9:00:00 BAND SINGER, . . Notes: (Same As: Ayan) Start Date: 04/22/17 Stop Date: 04/23/17 Status: Discontinued baclofen 10 mg oral tablet 5 mg=0.5 tab, PO, BID, .., 0 Refill(s) Start Date: 04/23/17 Status: Ordered benazepril 20 mg, Route: PO, Drug form: TAB, Daily, Dosing Weight 67.273, kg, Start date: 0 04/23/17 9:00:00 BAND SINGER, Duration: 30 day, Stop date: 05/22/17 9:00:00 BAND SINGER Start Date: 04/23/17 Stop Date: 04/22/17 Status: Deleted benazepril 20 mg oral tablet 20 mg=1 tab, PO, Daily, 0 Refill(s) Start Date: 04/21/17 Status: Ordered ceFAZolin (ANES) 1000 mg Route: IV, Drug form: INJ, Start date: 04/22/17 12:45:00 BAND SINGER, Stop date: 8 13:45:00 BAND SINGER Start Date: 04/22/17 Stop Date: 04/22/17 Status: Completed dexamethasone (ANES) Route: IV, Drug form: INJ, ONCE, Stop date: 04/22/17 14:43:00 BAND SINGER Start Date: 04/22/17 Stop Date: 04/22/17 Status: Completed dexmedetomidine (ANES) 200 microgram Route: IV, Drug form: INJ, Start date: 04/22/17 13:30:00 BAND SINGER, Stop date: 8 14:30:00 BAND SINGER Start Date: 04/22/17 Stop Date: 04/22/17 Status: Completed Dilaudid 0.3 mg, Route: IVP, Q3H, Dosing Weight 67.273, kg, PRN Pain Score 7-10, Start da te: 04/22/17 14:33:00 BAND SINGER, Duration: 30 day, Stop date: 05/22/17 14:32:00 BAND SINGER Start Date: 04/22/17 Stop Date: 04/22/17 Status: Deleted Dilaudid 1 mg, 0.5 tab, Route: PO, Drug form: TAB, Q3H, PRN Pain Score 7-10, Start date: 04/22/17 17:23:00 BAND SINGER, Duration: 30 day, Stop date: 05/22/17 17:22:00 BAND SINGER Notes: (Same as: Dilaudid) Start Date: 04/22/17 Stop Date: 04/23/17 Status: Discontinued diphenhydrAMINE 25 mg, 1 tab, Route: PO, Drug form: TAB, Bedtime, Dosing Weight 67.273, kg, PRN Insomnia, Start date: 04/22/17 14:33:00 BAND SINGER, Duration: 30 day, Stop date: 14:32:00 BAND SINGER Start Date: 04/22/17 Stop Date: 04/23/17 Status: Discontinued diphenhydrAMINE 25 mg oral tablet 25 mg=1 tab, PO, Bedtime, PRN Insomnia, 0 Refill(s) Start Date: 04/23/17 Status: Ordered enoxaparin 40 mg, 0.4 mL, Route: SUB-Q, Drug form: INJ, [id number], Dosing Weight 67.273, kg, Start date: 04/23/17 2:30:00 BAND SINGER, Stop date: 05/22/17 2:30:00 BAND SINGER Notes: (Same as: Lovenox) Start Date: 04/23/17 Stop Date: 04/23/17 Status: Discontinued Entereg 12 mg, Route: PO, PRE OP, Dosing Weight 67.273, kg, Start date: 04/22/17 11:00:0 0 BAND SINGER, Duration: 7 day, Stop date: 04/29/17 10:59:00 BAND SINGER Start Date: 04/22/17 Stop Date: 04/22/17 Status: Completed Exparel 20 mL, Route: InFILtration(local), Drug Form: INJ, Dosing Weight 67.273, kg, ONC ALL, For Hemorrhoidectomy, Start date: 04/22/17 11:00:00 BAND SINGER, Duration: 30 day, Stop date: 05/22/17 10:59:00 BAND SINGER Notes: (Same as: Exparel) NOT FOR IV use Postoperative analgesia: Infi ltration (local): Dose is based on surgical site and volume required to cover th e area (in general, the maximum total dose is 266 mg). Start Date: 04/22/17 Stop Date: 04/23/17 Status: Discontinued famotidine 20 mg, 1 tab, Route: PO, Drug form: TAB, Q12H, Dosing Weight 67.273, kg, Start d ate: 04/22/17 21:00:00 BAND SINGER, Duration: 30 day, Stop date: 05/22/17 9:00:00 BAND SINGER Notes: (Same as: Pepcid) Start Date: 04/22/17 Stop Date: 04/23/17 Status: Discontinued famotidine 20 mg oral tablet 20 mg=1 tab, PO, Q12H, 0 Refill(s) Start Date: 04/23/17 Status: Ordered fentaNYL (ANES) Route: IV, Drug form: INJ, ONCE, Stop date: 04/22/17 13:34:00 BAND SINGER Start Date: 04/22/17 Stop Date: 04/22/17 Status: Completed glycopyrrolate (ANES) Route: IV, Drug form: INJ, ONCE, Stop date: 04/22/17 14:43:00 BAND SINGER Start Date: 04/22/17 Stop Date: 04/22/17 Status: Completed ketAMINE (ANES) 100 mg Route: IV, Drug form: INJ, Start date: 04/22/17 13:30:00 BAND SINGER, Stop date: 8 14:30:00 BAND SINGER Start Date: 04/22/17 Stop Date: 04/22/17 Status: Completed Lactated Ringers Injection IV (ANES) 1000 mL Route: IV, Total Volume: 1,000, Start date: 04/22/17 12:33:00 BAND SINGER, Stop date: 13:33:00 BAND SINGER Start Date: 04/22/17 Stop Date: 04/22/17 Status: Completed Lactated Ringers Injection IV 1,000 mL 1,000 mL, Rate: 50 ml/hr, Infuse over: 20 hr, Route: IV, Dosing Weight 67.273 kg , Total Volume: 1,000, Start date: 04/22/17 14:33:00 BAND SINGER, Duration: 30 day, Stop date: 05/22/17 14:32:00 BAND SINGER, 1.85, m2 Start Date: 04/22/17 Stop Date: 04/23/17 Status: Discontinued Lactated Ringers IV 1000 mL 1,000 mL, Rate: 40 ml/hr, Infuse over: 25 hr, Route: IV, Dosing Weight 67.273 kg , Total Volume: 1,000, Start date: 04/22/17 10:40:00 BAND SINGER, Duration: 1 doses or t imes, Stop date: 04/23/17 11:39:00 BAND SINGER, 1.85, m2 Start Date: 04/22/17 Stop Date: 04/22/17 Status: Completed lidocaine (ANES) Route: IV, Drug form: INJ, ONCE, Stop date: 04/22/17 13:34:00 BAND SINGER Start Date: 04/22/17 Stop Date: 04/22/17 Status: Completed lidocaine 2 gm in D5W 250 ml Premix (titrate) 2 gm 2 gm, 250 mL, Rate: Infuse as directed, Dosing Weight 67.273, kg, Route: IV, Tot al Volume: 250 mL, Start date: 04/22/17 14:33:00 BAND SINGER, Duration: 30 day, Stop christy e: 05/22/17 14:32:00 BAND SINGER, Replace Every: 24 hr Start Date: 04/22/17 Stop Date: 04/22/17 Status: Discontinued lisinopril 20 mg, 1 tab, Route: PO, Drug form: TAB, Q24H, Start date: 04/22/17 18:00:00 BAND SINGER , Duration: 30 day, Stop date: 05/21/17 18:00:00 BAND SINGER Notes: (Same as: Prinivil, Zestril) Start Date: 04/22/17 Stop Date: 04/23/17 Status: Discontinued lisinopril 20 mg oral tablet 20 mg=1 tab, PO, Q24H, 0 Refill(s) Start Date: 04/23/17 Status: Ordered metroNIDAZOLE (ANES) 5 mg Route: IV, Drug form: INJ, Start date: 04/22/17 13:00:00 BAND SINGER, Stop date: 8 14:00:00 BAND SINGER Start Date: 04/22/17 Stop Date: 04/22/17 Status: Completed naproxen 500 mg, 1 tab, Route: PO, Drug form: TAB, BID, Dosing Weight 67.273, kg, Start d ate: 04/22/17 17:00:00 BAND SINGER, Duration: 30 day, Stop date: 05/22/17 9:00:00 BAND SINGER Notes: (Same as: Naprosyn) Take with food. Start Date: 04/22/17 Stop Date: 04/23/17 Status: Discontinued naproxen 500 mg oral tablet 500 mg=1 tab, PO, BID, X 14 day, # 28 tab, 0 Refill(s) Start Date: 04/23/17 Stop Date: 05/07/17 Status: Completed neostigmine (ANES) Route: IV, Drug form: INJ, ONCE, Stop date: 04/22/17 14:43:00 BAND SINGER Start Date: 04/22/17 Stop Date: 04/22/17 Status: Completed Ofirmev 500 mg, 50 mL, Route: IV, Drug form: INJ, Q6H, Dosing Weight 67.273, kg, for > or=50 kg, Start date: 04/22/17 18:00:00 BAND SINGER, Duration: 24 hr, Stop date: 12:00:00 BAND SINGER Notes: Infuse over 15 minutesDo not exceed 4gm/day of acetaminophen MEDICAT ION WASTE Product Size: 1000 mgProduct Wasted: ___ mg Start Date: 04/22/17 Stop Date: 04/23/17 Status: Completed ondansetron 4 mg, 2 mL, Route: IVP, Drug form: INJ, Q6H, Dosing Weight 67.273, kg, PRN Nause a & Vomiting, Start date: 04/22/17 14:33:00 BAND SINGER, Duration: 30 day, Stop date: 05/22/17 14:32:00 BAND SINGER Notes: (Same as: Zofran) MEDICATION WASTE Product Size: 4 mgProduct Was ksenia: ___ mg Start Date: 04/22/17 Stop Date: 04/23/17 Status: Discontinued ondansetron (ANES) Route: IV, Drug form: INJ, ONCE, Stop date: 04/22/17 14:43:00 BAND SINGER Start Date: 04/22/17 Stop Date: 04/22/17 Status: Completed Precedex 200 microgram in NS 50 mL (Titrate.) IV 200 microgram + Sodium Chloride 0.9% IV 48 mL 200 microgram, 2 mL, Rate: Titrate, Start Dose: 0.2 microgram/kg/hr, Titration: 0.1 microgram/kg/hr every 30 min, Goal(s): MAINTAIN WITHIN NORMAL LIMITS, Max Do se: 1.5 microgram/kg/hr, Route: IV, Dosing Weight 67.273 kg, Total Volume: 50, S tart date:... Notes: Not for use > 24 hours Start Date: 04/22/17 Stop Date: 04/23/17 Status: Discontinued propofol (ANES) Route: IV, Drug form: INJ, ONCE, Stop date: 04/22/17 13:34:00 BAND SINGER Start Date: 04/22/17 Stop Date: 04/22/17 Status: Completed rocuronium (ANES) Route: IV, Drug form: INJ, ONCE, Stop date: 04/22/17 13:34:00 BAND SINGER Start Date: 04/22/17 Stop Date: 04/22/17 Status: Completed Sodium Chloride 0.9% IV (ANES) 1000 mL Route: IV, Total Volume: 1,000, Start date: 04/22/17 12:45:00 BAND SINGER, Stop date: 13:45:00 BAND SINGER Start Date: 04/22/17 Stop Date: 04/22/17 Status: Completed Results BLOOD BANK RESULTS Most recent to 1 oldest [Reference Range]: ABO/Rh B POS *Unknown* (04/21/17 8:54 AM) Antibody Scrn Negative (04/21/17 8:54 AM) ELECTROLYTES Most recent to 1 2 oldest [Reference Range]: Sodium Lvl [135-145 132 mEq/L 136 mEq/L mEq/L] *LOW* (04/21/17 8:54 AM) (04/23/17 5:18 AM) Potassium Lvl 4.3 mEq/L 4.4 mEq/L [3.5-5.1 mEq/L] (04/23/17 5:18 AM) (04/21/17 8:54 AM) Chloride Lvl [95-109 99 mEq/L 99 mEq/L mEq/L] (04/23/17 5:18 AM) (04/21/17 8:54 AM) CO2 [24-32 mEq/L] 21 mEq/L 30 mEq/L *LOW* (04/21/17 8:54 AM) (04/23/17 5:18 AM) AGAP [10.0-20.0 16.3 mEq/L 11.4 mEq/L mEq/L] (04/23/17 5:18 AM) (04/21/17 8:54 AM) CHEM PANEL Most recent to 1 2 oldest [Reference Range]: Creatinine Lvl 1.23 mg/dL 1.10 mg/dL [0.50-1.40 mg/dL] (04/23/17 5:18 AM) (04/21/17 8:54 AM) eGFR 57 mL/min/1.73m2 1 66 mL/min/1.73m2 2 *NA* *NA* (04/23/17 5:18 AM) (04/21/17 8:54 AM) BUN [7-22 mg/dL] 28 mg/dL 16 mg/dL *HI* (04/21/17 8:54 AM) (04/23/17 5:18 AM) Glucose Lvl [70-99 119 mg/dL 91 mg/dL mg/dL] *HI* (04/21/17 8:54 AM) (04/23/17 5:18 AM) Calcium Lvl 8.5 mg/dL 8.9 mg/dL [8.5-10.5 mg/dL] (04/23/17 5:18 AM) (04/21/17 8:54 AM) 1Result Comment: The eGFR is calculated [...] be mul tiplied by the estimated BMI. 2Result Comment: The eGFR is calculated using the [...] be mul tiplied by the estimated BMI. HEMATOLOGY Most recent to 1 2 oldest [Reference Range]: WBC [3.7-10.4 K/CMM] 10.1 K/CMM (04/21/17 8:54 AM) RBC [4.70-6.10 4.60 M/CMM M/CMM] *LOW* (04/21/17 8:54 AM) Hgb [14.0-18.0 g/dL] 13.6 g/dL 14.1 g/dL *LOW* (04/21/17 8:54 AM) (04/23/17 5:18 AM) Hct [42.0-54.0 %] 40.6 % 42.0 % *LOW* (04/21/17 8:54 AM) (04/23/17 5:18 AM) MCV [80.0-94.0 fL] 91.3 fL (04/21/17 8:54 AM) MCH [27.0-31.0 pg] 30.7 pg (04/21/17 8:54 AM) MCHC [32.0-36.0 33.6 g/dL g/dL] (04/21/17 8:54 AM) RDW [11.5-14.5 %] 13.6 % (04/21/17 8:54 AM) MPV [7.4-10.4 fL] 8.7 fL (04/21/17 8:54 AM) Platelet [133-450 266 K/CMM K/CMM] (04/21/17 8:54 AM) Segs [45.0-75.0 %] 76.1 % *HI* (04/21/17 8:54 AM) Lymphocytes 12.9 % [20.0-40.0 %] *LOW* (04/21/17 8:54 AM) Monocytes [2.0-12.0 9.5 % %] (04/21/17 8:54 AM) Eosinophils [0.0-4.0 0.7 % %] (04/21/17 8:54 AM) Basophils [0.0-1.0 0.8 % %] (04/21/17 8:54 AM) Segs-Bands # 7.7 K/CMM [1.5-8.1 K/CMM] (04/21/17 8:54 AM) Lymphocytes # 1.3 K/CMM [1.0-5.5 K/CMM] (04/21/17 8:54 AM) Monocytes # [0.0-0.8 1.0 K/CMM K/CMM] *HI* (04/21/17 8:54 AM) Eosinophils # 0.1 K/CMM [0.0-0.5 K/CMM] (04/21/17 8:54 AM) Basophils # [0.0-0.2 0.1 K/CMM K/CMM] (04/21/17 8:54 AM) PT [12.0-14.7 14.0 seconds seconds] (04/21/17 8:54 AM) INR [0.85-1.17] 1.08 (04/21/17 8:54 AM) PTT [22.9-35.8 33.1 seconds seconds] (04/21/17 8:54 AM) Immunizations No data available for this section [...] 20; entered on: 04/22/17 Assessment and Plan Extracted from: Title: Colon and Rectal Surgery Author: Juan Carlos Cooper Date: 04/23/17 Progress Note (Fellow) PD 1 s/p port placement and lap diverting colostomy for obstructing colon ca, with productive ostomy, pain controlled, ambulating doing well advance to soft regular diet d/c IVF ostomy nurse consult likely d/c home later today after ostomy instruction Juan Carlos Cooper MD Fellow, [facility] Colon and Rectal Surgery Supervising Attending Dr. Gale Addendum by Agree with above Jonathan Gale MD MD on 04/24/2017 21:24 BAND SINGER
--- OUTSIDE RECORDS SUMMARY | 2018-03-19 09:49 | XMS REPORT | Summary of Care ---
Author Author [facility] Organization [facility] Address Unknown Phone Unavailable Encounter HQ Encntr_alias(FIN) [id number] Date(s): 04/17/17 - 04/17/17 [facility] [address] [place] [address]- Discharge Disposition: Home or Self Care Attending Physician: Jonathan Gale MD Referring Physician: Jonathan Gale MD Vital Signs No data available for this section Problem List No data available for this section Allergies, Adverse Reactions, Alerts No data available for this section Medications No data available for this section Results No data available for this section Immunizations No data available for this section Procedures No data available for this section Social History No data available for this section Assessment and Plan No data available for this section
--- OUTSIDE RECORDS SUMMARY | 2018-03-19 09:49 | XMS REPORT | Summary of Care ---
Author Author [facility] Organization [facility] Address Unknown Phone Unavailable Encounter HQ Encntr_alias(FIN) [id number] Date(s): 04/16/17 - 04/16/17 [facility] [address] [place] [address]- Discharge Disposition: Home or Self Care Attending [...]
--- OUTSIDE RECORDS SUMMARY | 2018-03-19 09:49 | XMS REPORT | Summary of Care ---
Author Author [facility] Organization [facility] Address Unknown Phone Unavailable Encounter JEFFERSON Aragon(MAITE) [id number] Date(s): 04/22/17 - 04/23/17 [facility] [address] [place] [address]- [phone] Discharge Disposition: Home or Self Care Attending Physician: Jonathan Gale MD Admitting Physician: [...] form: TAB, Q6H, Start date: 04/23/17 18:00:00 CELL ASSEMBLY PINNER , Duration: 30 day, Stop date: 05/23/17 12:00:00 CELL ASSEMBLY PINNER Notes: Max acetaminophen 4000 mg/day (4 gm/day). (Same as: Tylenol Extra Streng th) Start Date: 04/23/17 Stop Date: 04/23/17 Status: Canceled acetaminophen (ANES) 10 mg Route: IV, Drug form: INJ, Start date: 04/22/17 14:16:00 CELL ASSEMBLY PINNER, Stop date: 8 15:16:00 CELL ASSEMBLY PINNER Start Date: 04/22/17 Stop Date: 04/22/17 Status: Completed acetaminophen 500 mg oral tablet 500 mg=1 tab, PO, Q6H, X 14 day, # 56 tab, 0 Refill(s) Start Date: 04/23/17 Stop Date: 05/07/17 Status: Ordered amLODIPine 10 mg, 2 tab, Route: PO, Drug form: TAB, Daily, Dosing Weight 67.273, kg, Start date: 04/23/17 9:00:00 CELL ASSEMBLY PINNER, Duration: 30 day, Stop date: 05/22/17 9:00:00 CELL ASSEMBLY PINNER Notes: (Same as: Rose) Start Date: 04/23/17 Stop Date: 04/23/17 Status: Discontinued amLODIPine 10 mg oral tablet 10 mg=1 tab, PO, Daily, 0 Refill(s) Start Date: 04/21/17 Status: Ordered baclofen 5 mg, 0.5 tab, Route: PO, Drug form: TAB, BID, Dosing Weight 67.273, kg, Start d ate: 04/22/17 17:00:00 CELL ASSEMBLY PINNER, Duration: 30 day, Stop date: 05/22/17 9:00:00 CELL ASSEMBLY PINNER, . . Notes: (Same As: Ayan) Start Date: 04/22/17 Stop Date: 04/23/17 Status: Discontinued baclofen 10 mg oral tablet 5 mg=0.5 tab, PO, BID, .., 0 Refill(s) Start Date: 04/23/17 Status: Ordered benazepril 20 mg, Route: PO, Drug form: TAB, Daily, Dosing Weight 67.273, kg, Start date: 0 04/23/17 9:00:00 CELL ASSEMBLY PINNER, Duration: 30 day, Stop date: 05/22/17 9:00:00 CELL ASSEMBLY PINNER Start Date: 04/23/17 Stop Date: 04/22/17 Status: Deleted benazepril 20 mg oral tablet 20 mg=1 tab, PO, Daily, 0 Refill(s) Start Date: 04/21/17 Status: Ordered ceFAZolin (ANES) 1000 mg Route: IV, Drug form: INJ, Start date: 04/22/17 12:45:00 CELL ASSEMBLY PINNER, Stop date: 8 13:45:00 CELL ASSEMBLY PINNER Start Date: 04/22/17 Stop Date: 04/22/17 Status: Completed dexamethasone (ANES) Route: IV, Drug form: INJ, ONCE, Stop date: 04/22/17 14:43:00 CELL ASSEMBLY PINNER Start Date: 04/22/17 Stop Date: 04/22/17 Status: Completed dexmedetomidine (ANES) 200 microgram Route: IV, Drug form: INJ, Start date: 04/22/17 13:30:00 CELL ASSEMBLY PINNER, Stop date: 8 14:30:00 CELL ASSEMBLY PINNER Start Date: 04/22/17 Stop Date: 04/22/17 Status: Completed Dilaudid 0.3 mg, Route: IVP, Q3H, Dosing Weight 67.273, kg, PRN Pain Score 7-10, Start da te: 04/22/17 14:33:00 CELL ASSEMBLY PINNER, Duration: 30 day, Stop date: 05/22/17 14:32:00 CELL ASSEMBLY PINNER Start Date: 04/22/17 Stop Date: 04/22/17 Status: Deleted Dilaudid 1 mg, 0.5 tab, Route: PO, Drug form: TAB, Q3H, PRN Pain Score 7-10, Start date: 04/22/17 17:23:00 CELL ASSEMBLY PINNER, Duration: 30 day, Stop date: 05/22/17 17:22:00 CELL ASSEMBLY PINNER Notes: (Same as: Dilaudid) Start Date: 04/22/17 Stop Date: 04/23/17 Status: Discontinued diphenhydrAMINE 25 mg, 1 tab, Route: PO, Drug form: TAB, Bedtime, Dosing Weight 67.273, kg, PRN Insomnia, Start date: 04/22/17 14:33:00 CELL ASSEMBLY PINNER, Duration: 30 day, Stop date: 14:32:00 CELL ASSEMBLY PINNER Start Date: 04/22/17 Stop Date: 04/23/17 Status: Discontinued diphenhydrAMINE 25 mg oral tablet 25 mg=1 tab, PO, Bedtime, PRN Insomnia, 0 Refill(s) Start Date: 04/23/17 Status: Ordered enoxaparin 40 mg, 0.4 mL, Route: SUB-Q, Drug form: INJ, [id number], Dosing Weight 67.273, kg, Start date: 04/23/17 2:30:00 CELL ASSEMBLY PINNER, Stop date: 05/22/17 2:30:00 CELL ASSEMBLY PINNER Notes: (Same as: Lovenox) Start Date: 04/23/17 Stop Date: 04/23/17 Status: Discontinued Entereg 12 mg, Route: PO, PRE OP, Dosing Weight 67.273, kg, Start date: 04/22/17 11:00:0 0 CELL ASSEMBLY PINNER, Duration: 7 day, Stop date: 04/29/17 10:59:00 CELL ASSEMBLY PINNER Start Date: 04/22/17 Stop Date: 04/22/17 Status: Completed Exparel 20 mL, Route: InFILtration(local), Drug Form: INJ, Dosing Weight 67.273, kg, ONC ALL, For Hemorrhoidectomy, Start date: 04/22/17 11:00:00 CELL ASSEMBLY PINNER, Duration: 30 day, Stop date: 05/22/17 10:59:00 CELL ASSEMBLY PINNER Notes: (Same as: Exparel) NOT FOR IV [...] 67.273, kg, Start d ate: 04/22/17 21:00:00 CELL ASSEMBLY PINNER, Duration: 30 day, Stop date: 05/22/17 9:00:00 CELL ASSEMBLY PINNER Notes: (Same as: Pepcid) Start Date: 04/22/17 Stop Date: 04/23/17 Status: Discontinued famotidine 20 mg oral tablet 20 mg=1 tab, PO, Q12H, 0 Refill(s) Start Date: 04/23/17 Status: Ordered fentaNYL (ANES) Route: IV, Drug form: INJ, ONCE, Stop date: 04/22/17 13:34:00 CELL ASSEMBLY PINNER Start Date: 04/22/17 Stop Date: 04/22/17 Status: Completed glycopyrrolate (ANES) Route: IV, Drug form: INJ, ONCE, Stop date: 04/22/17 14:43:00 CELL ASSEMBLY PINNER Start Date: 04/22/17 Stop Date: 04/22/17 Status: Completed ketAMINE (ANES) 100 mg Route: IV, Drug form: INJ, Start date: 04/22/17 13:30:00 CELL ASSEMBLY PINNER, Stop date: 8 14:30:00 CELL ASSEMBLY PINNER Start Date: 04/22/17 Stop Date: 04/22/17 Status: Completed Lactated Ringers Injection IV (ANES) 1000 mL Route: IV, Total Volume: 1,000, Start date: 04/22/17 12:33:00 CELL ASSEMBLY PINNER, Stop date: 13:33:00 CELL ASSEMBLY PINNER Start Date: 04/22/17 Stop Date: 04/22/17 Status: Completed Lactated Ringers Injection IV 1,000 mL 1,000 mL, Rate: 50 ml/hr, Infuse over: 20 hr, Route: IV, Dosing Weight 67.273 kg , Total Volume: 1,000, Start date: 04/22/17 14:33:00 CELL ASSEMBLY PINNER, Duration: 30 day, Stop date: 05/22/17 14:32:00 CELL ASSEMBLY PINNER, 1.85, m2 Start Date: 04/22/17 Stop Date: 04/23/17 Status: Discontinued Lactated Ringers IV 1000 mL 1,000 mL, Rate: 40 ml/hr, Infuse over: 25 hr, Route: IV, Dosing Weight 67.273 kg , Total Volume: 1,000, Start date: 04/22/17 10:40:00 CELL ASSEMBLY PINNER, Duration: 1 doses or t imes, Stop date: 04/23/17 11:39:00 CELL ASSEMBLY PINNER, 1.85, m2 Start Date: 04/22/17 Stop Date: 04/22/17 Status: Completed lidocaine (ANES) Route: IV, Drug form: INJ, ONCE, Stop date: 04/22/17 13:34:00 CELL ASSEMBLY PINNER Start Date: 04/22/17 Stop Date: 04/22/17 Status: Completed lidocaine 2 gm in D5W 250 ml Premix (titrate) 2 gm 2 gm, 250 mL, Rate: Infuse as directed, Dosing Weight 67.273, kg, Route: IV, Tot al Volume: 250 mL, Start date: 04/22/17 14:33:00 CELL ASSEMBLY PINNER, Duration: 30 day, Stop christy e: 05/22/17 14:32:00 CELL ASSEMBLY PINNER, Replace Every: 24 hr Start Date: 04/22/17 Stop Date: 04/22/17 Status: Discontinued lisinopril 20 mg, 1 tab, Route: PO, Drug form: TAB, Q24H, Start date: 04/22/17 18:00:00 CELL ASSEMBLY PINNER , Duration: 30 day, Stop date: 05/21/17 18:00:00 CELL ASSEMBLY PINNER Notes: (Same as: Prinivil, Zestril) Start Date: 04/22/17 Stop Date: 04/23/17 Status: Discontinued lisinopril 20 mg oral tablet 20 mg=1 tab, PO, Q24H, 0 Refill(s) Start Date: 04/23/17 Status: Ordered metroNIDAZOLE (ANES) 5 mg Route: IV, Drug form: INJ, Start date: 04/22/17 13:00:00 CELL ASSEMBLY PINNER, Stop date: 8 14:00:00 CELL ASSEMBLY PINNER Start Date: 04/22/17 Stop Date: 04/22/17 Status: Completed naproxen 500 mg, 1 tab, Route: PO, Drug form: TAB, BID, Dosing Weight 67.273, kg, Start d ate: 04/22/17 17:00:00 CELL ASSEMBLY PINNER, Duration: 30 day, Stop date: 05/22/17 9:00:00 CELL ASSEMBLY PINNER Notes: (Same as: Naprosyn) Take with food. Start Date: 04/22/17 Stop Date: 04/23/17 Status: Discontinued naproxen 500 mg oral tablet 500 mg=1 tab, PO, BID, X 14 day, # 28 tab, 0 Refill(s) Start Date: 04/23/17 Stop Date: 05/07/17 Status: Ordered neostigmine (ANES) Route: IV, Drug form: INJ, ONCE, Stop date: 04/22/17 14:43:00 CELL ASSEMBLY PINNER Start Date: 04/22/17 Stop Date: 04/22/17 Status: Completed Ofirmev 500 mg, 50 mL, Route: IV, Drug form: INJ, Q6H, Dosing Weight 67.273, kg, for > or=50 kg, Start date: 04/22/17 18:00:00 CELL ASSEMBLY PINNER, Duration: 24 hr, Stop date: 12:00:00 CELL ASSEMBLY PINNER Notes: Infuse over 15 minutesDo not exceed 4gm/day of acetaminophen MEDICAT ION WASTE Product Size: 1000 mgProduct Wasted: ___ mg Start Date: 04/22/17 Stop Date: 04/23/17 Status: Completed ondansetron 4 mg, 2 mL, Route: IVP, Drug form: INJ, Q6H, Dosing Weight 67.273, kg, PRN Nause a & Vomiting, Start date: 04/22/17 14:33:00 CELL ASSEMBLY PINNER, Duration: 30 day, Stop date: 05/22/17 14:32:00 CELL ASSEMBLY PINNER Notes: (Same as: Zofran) MEDICATION WASTE Product Size: 4 mgProduct Was ksenia: ___ mg Start Date: 04/22/17 Stop Date: 04/23/17 Status: Discontinued ondansetron (ANES) Route: IV, Drug form: INJ, ONCE, Stop date: 04/22/17 14:43:00 CELL ASSEMBLY PINNER Start Date: 04/22/17 Stop Date: 04/22/17 Status: [...] form: INJ, ONCE, Stop date: 04/22/17 13:34:00 CELL ASSEMBLY PINNER Start Date: 04/22/17 Stop Date: 04/22/17 Status: Completed rocuronium (ANES) Route: IV, Drug form: INJ, ONCE, Stop date: 04/22/17 13:34:00 CELL ASSEMBLY PINNER Start Date: 04/22/17 Stop Date: 04/22/17 Status: Completed Sodium Chloride 0.9% IV (ANES) 1000 mL Route: IV, Total Volume: 1,000, Start date: 04/22/17 12:45:00 CELL ASSEMBLY PINNER, Stop date: 13:45:00 CELL ASSEMBLY PINNER Start Date: 04/22/17 Stop Date: 04/22/17 Status: [...] [11.5-14.5 %] 13.6 % (04/21/17 8:54 AM) Platelet [133-450 266 K/CMM K/CMM] (04/21/17 8:54 AM) MPV [7.4-10.4 fL] 8.7 fL (04/21/17 8:54 AM) Segs [45.0-75.0 %] 76.1 [...] ostomy instruction Juan Carlos Cooper MD Fellow, [facility] Colon and Rectal Surgery Supervising Attending Dr. Gale Addendum by Agree with above Jonathan Gale MD MD on 04/24/2017 21:24 CELL ASSEMBLY PINNER
--- OUTSIDE RECORDS SUMMARY | 2018-03-19 09:49 | XMS REPORT | Summary of Care ---
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) - Emphysema, unspecified (Final) - Colostomy status (Final) - Discharge Disposition: Home or Self Care Attending Physician: Brandi Zuñiga DO Referring Physician: Brandi Zuñiga DO Vital Signs No data available for this section Problem List Condition Effective Dates Status Health Status Informant Hard of Active hearing(Confirmed) Hypertension(Confirm Active ed) Rectal Active cancer(Confirmed) Allergies, Adverse Reactions, Alerts Substance Reaction Severity Status NKDA Active Medications Omnipaque 300 100 mL, Route: IV, Drug Form: SOLN, ONCE, Start date: 07/01/17 9:58:00 CDT, Stop date: 07/01/17 9:58:00 CDT Notes: (Same as:Omnipaque 300).WASTE: F/P - Black; E - Municipal Trash Bin Start Date: 07/01/17 Stop Date: 07/01/17 Status: Completed Results CHEM PANEL Most recent to 1 oldest [Reference Range]: eGFR 84 mL/min/1.73m2 1 *NA* (07/01/17 9:11 AM) POC Creatinine 0.9 mg/dL [0.5-1.4 mg/dL] (07/01/17 9:11 AM) 1Result Comment: The eGFR is calculated [...]
--- OUTSIDE RECORDS SUMMARY | 2018-03-19 09:49 | XMS REPORT | Summary of Care ---
Author Author [facility] Organization [facility] Address Unknown Phone Unavailable Encounter JEFFERSON Aragon(MAITE) [id number] Date(s): 04/09/17 - 04/09/17 [facility] [address] [place] [address]- Discharge Disposition: Home or Self Care Attending Physician: Gildardo Perdomo MD Referring Physician: Gildardo Perdomo MD Vital Signs No data available for this section Problem List No data available for this section Allergies, Adverse Reactions, Alerts No data available for this section Medications Visipaque 75 mL, Route: IV, Drug Form: SOLN, ONCE, Start date: 04/09/17 13:37:00 DATA PROCESSING AUDITOR, Stop date: 04/09/17 13:37:00 DATA PROCESSING AUDITOR Notes: (Same as: Visipaque).WASTE: F/P - Black; E - Municipal Trash Bin Start Date: 04/09/17 Stop Date: 04/09/17 Status: Completed Results CHEM PANEL Most recent to 1 oldest [Reference Range]: eGFR 45 mL/min/1.73m2 1 *NA* (04/09/17 1:12 PM) POC Creatinine 1.5 mg/dL [0.5-1.4 mg/dL] *HI* (04/09/17 1:12 PM) 1Result Comment: The eGFR is calculated using [...]
[2018-03-19 12:15] VITALS: BP 101/62
--- NOTE | 2018-03-19 14:33 | Operative Report ---
DATE OF PROCEDURE: March 19, 2018 PROCEDURE: Esophagogastroduodenoscopy with dilation and biopsies. PREOPERATIVE DIAGNOSIS 1. History of dysphagia. 2. Rule out esophageal neoplasm, esophageal stricture and esophagitis. PROCEDURE: After informed written consent and premedications with monitored anesthesia care, standard video Olympus gastroscope was introduced into the mouth, esophagus, stomach, and into the 2nd portion of the duodenum. The duodenal bulb showed a duodenal ulcer with duodenitis. Antrum, body and fundus showed gastritis and biopsies were done. Retroflexion revealed a small sliding hiatal hernia. The GE junction showed esophagitis with esophageal ulceration and an esophageal stricture, which was gently dilated with a TTS balloon from 15 to 18 mm in size. The dilation was satisfactory. Appearance appeared to be satisfactory. Biopsies were obtained from the area of the esophageal ulcer. IMPRESSION 1. Esophageal ulcer. 2. Esophagitis. 3. Hiatal hernia. 4. Esophageal stricture. 5. Gastritis. 6. Duodenal ulcer. 7. Duodenitis. RECOMMENDATIONS: Avoid aspirin and NSAIDs. Will keep him on long-term PPI therapy. GERD precautions. The patient to follow up in the office in 4 weeks. Further recommendations will be based on the patient's clinical course. Job#: [id number] COLLEEN
== END | disposition home or self-care (01) ==
LOC: OR 09:46
PROVIDERS: ATTEND Internal Medicine Gastroenterology
DX: K22.2 Esophageal obstruction (principal); C22.8 Malignant neoplasm of liver, primary, unspecified as to type; C79.51 Secondary malignant neoplasm of bone; K29.50 Unspecified chronic gastritis without bleeding; B96.81 Helicobacter pylori [H. pylori] as the cause of diseases classified elsewhere; K22.10 Ulcer of esophagus without bleeding; K44.9 Diaphragmatic hernia without obstruction or gangrene; K26.9 Duodenal ulcer, unspecified as acute or chronic, without hemorrhage or perforation; K29.80 Duodenitis without bleeding; Z93.3 Colostomy status; I10 Essential (primary) hypertension; I49.1 Atrial premature depolarization; F17.210 Nicotine dependence, cigarettes, uncomplicated; Z01.810 Encounter for preprocedural cardiovascular examination; Z92.21 Personal history of antineoplastic chemotherapy; Z92.3 Personal history of irradiation
CPT/HCPCS: 43239; 43249; 88305; 88313; 88342; 93005; J2001; J2704; 43450; 88312